=== PATIENT | female | born 1995 | race Caucasian/White ===

== ENCOUNTER 2017-03-16 08:36 | Emergency (ER) | payer BC ==
[~2017-03-16] VITALS: Ht 162.6 cm; Wt 66.0 kg
[2017-03-16 08:37] VITALS: BP 124/80; PULSE 93; RESP 16; TEMP 98.2; O2SAT 99
--- NOTE | 2017-03-16 08:47 | PD ---
HPI Chief Complaint: Flank/Kidney Pain Time Seen by Provider: 08:47 Travel History International Travel<30 days: No Contact w/Intl Traveler<30days: No Traveled to known affect area: No History of Present Illness HPI 21-year-old female came to the emergency room with a with history of mid back pain radiating to her front of the abdomen that story upon laying down. Patient says that she was having some UTI symptoms 2 weeks ago. She did some home remedies like taking AZO and cranberry juice after which she started feeling better and push through it since she is a student and had to continue with her schools. However 1 week ago this pain started and she went to an urgent care. They checked a UA and told her she had pyelonephritis and gave her prescription for ciprofloxacin. Patient has been taking ciprofloxacin for past 3 days. She brought the paperwork in report with her. I looked at the paperwork and the report on the UA myself and did not see anything suspicious for UTI. Patient says her pain continues and was really worse last night. Now she has decided to come to the emergency room to be checked out. No history of fever or chills. She has been nauseous. There was a bedside done before I came in and that was negative. Vital signs otherwise stable. Patient says lately she has started to drink a little more than her usual. She is otherwise a healthy person. [facility] Past Medical History Narrative Medical List of her past medical, surgical, social and family history was reviewed from the nursing note. Social History Tobacco Use: Yes Allergies-Medications (Allergen,Severity, Reaction): Coded Allergies: No Known Allergies (Unverified , 03/16/17) Comments No known drug allergies. Reported Meds & Prescriptions Reported Meds & Active Scripts Active Reglan (Metoclopramide HCl) 5 Mg Tab 5 Mg PO TIDAC PRN Protonix (Pantoprazole Sodium) 40 Mg Tab 40 Mg PO DAILY Reported Cipro (Ciprofloxacin HCl) 500 Mg Tab 500 Mg PO BID Narrative Medication List of her home medications reviewed from the nursing note. Review of Systems Except as stated in HPI: all other systems reviewed are Neg Physical Exam Narrative GENERAL: Awake, alert, moderate distress SKIN: Focused skin assessment warm/dry. HEAD: Atraumatic. Normocephalic. EYES: Pupils equal and round. No scleral icterus. No injection or drainage. ENT: No nasal bleeding or discharge. Mucous membranes pink and moist. NECK: Trachea midline. No JVD. CARDIOVASCULAR: Regular rate and rhythm. No murmur appreciated. RESPIRATORY: No accessory muscle use. Clear to auscultation. Breath sounds equal bilaterally. GASTROINTESTINAL: Abdomen soft, epigastric tenderness on deep palpation, nondistended. Hepatic and splenic margins not palpable. MUSCULOSKELETAL: No obvious deformities. No clubbing. No cyanosis. No edema. NEUROLOGICAL: Awake and alert. No obvious cranial nerve deficits. Motor grossly within normal limits. Normal speech. PSYCHIATRIC: Appropriate mood and affect; insight and judgment normal. Data Data Last Documented VS Vital Signs Date Time Temp Pulse Resp B/P Pulse Ox O2 Delivery O2 Flow Rate FiO2 03/16/17 12:01 78 18 134/71 99 03/16/17 10:31 Room Air 03/16/17 08:37 98.2 Orders Urinalysis - C+S If Indicated (03/16/17 08:47) Ed Urine Pregnancytest Poc (03/16/17 08:47) Complete Blood Count With Diff (03/16/17 09:04) Comprehensive Metabolic Panel (03/16/17 09:04) Lipase (03/16/17 09:04) Ct Abd/Pel W Iv Contrast(Rout) (03/16/17 09:04) Iv Access Insert/Monitor (03/16/17 09:04) Ecg Monitoring (03/16/17 09:04) Oximetry (03/16/17 09:04) Morphine Inj (Morphine Inj) (03/16/17 09:15) Ondansetron Inj (Zofran Inj) (03/16/17 09:15) Pantoprazole Inj (Protonix Inj) (03/16/17 09:15) Sodium Chlor 0.9% 1000 Ml Inj (Ns 1000 M (03/16/17 09:04) Sodium Chloride 0.9% Flush (Ns Flush) (03/16/17 09:15) Oral Contrast - Adult (03/16/17 09:11) Diatrizoate Liq ( Gastroview Liq) (03/16/17 09:23) Urine Culture (03/16/17 08:45) Iohexol 350 Inj (Omnipaque 350 Inj) (03/16/17 10:24) Labs Laboratory Tests Test 03/16/17 03/16/17 08:45 09:10 Urine Collection Type CLEAN CATCH Urine Color YELLOW Urine Turbidity CLEAR Urine pH 5.5 Urine Specific [place] 1.019 Urine Protein NEG mg/dL Urine Glucose (UA) NEG mg/dL Urine Ketones NEG mg/dL Urine Occult Blood NEG Urine Nitrite NEG Urine Bilirubin NEG Urine Leukocyte Esterase NEG Urine WBC 0-2 /hpf Urine Squamous Epithelial 6-8 /hpf Cells Urine Bacteria MOD /hpf Microscopic Urinalysis Comment CULTURE INDICATED Urine Collection Time 08:45 White Blood Count 6.3 TH/MM3 Red Blood Count 4.71 MIL/MM3 Hemoglobin 13.6 GM/DL Hematocrit 40.9 % Mean Corpuscular Volume 86.8 FL Mean Corpuscular Hemoglobin 28.9 PG Mean Corpuscular Hemoglobin 33.3 % Concent Red Cell Distribution Width 12.1 % Platelet Count 314 TH/MM3 Mean Platelet Volume 8.5 FL Neutrophils (%) (Auto) 68.2 % Lymphocytes (%) (Auto) 22.4 % Monocytes (%) (Auto) 4.9 % Eosinophils (%) (Auto) 3.1 % Basophils (%) (Auto) 1.4 % Neutrophils # (Auto) 4.2 TH/MM3 Lymphocytes # (Auto) 1.4 TH/MM3 Monocytes # (Auto) 0.3 TH/MM3 Eosinophils # (Auto) 0.2 TH/MM3 Basophils # (Auto) 0.1 TH/MM3 CBC Comment DIFF FINAL Differential Comment Sodium Level 139 MEQ/L Potassium Level 3.9 MEQ/L Chloride Level 104 MEQ/L Carbon Dioxide Level 27.6 MEQ/L Anion Gap 7 MEQ/L Blood Urea Nitrogen 16 MG/DL Creatinine 0.88 MG/DL Estimat Glomerular Filtration 80 ML/MIN Rate Random Glucose 99 MG/DL Calcium Level 9.3 MG/DL Total Bilirubin 0.5 MG/DL Aspartate Amino Transf 18 U/L (AST/SGOT) Alanine Aminotransferase 21 U/L (ALT/SGPT) Alkaline Phosphatase 71 U/L Total Protein 8.6 GM/DL Albumin 4.2 GM/DL Lipase 152 U/L [facility] Medical Decision Making Medical Screen Exam Complete: Yes Emergency Medical Condition: Yes Medical Record Reviewed: Yes Differential Diagnosis Acute pancreatitis, ureteral colic, acute cholecystitis, abdominal pain NOS Narrative Course 9:53 AM CBC and UA appears to be within normal limits. Awaiting for the chemistry and the CAT scan to be done and resulted. Patient was given IV fluid , pain medication and IV Protonix. 11 AM all the blood test results are back and within acceptable limits. CT scan is done. Awaiting for the report. 11:[address] scan shows a significantly distended stomach. Given the fact that patient just had some cereal in the morning the stomach looks out of proportion nondistended. This makes me wonder if she has a gastric outlet syndrome or gastroparesis. I discussed at length with the patient regarding the possibilities of these 2. She has been given dietary instruction. I'll discharge her home on Protonix and Reglan. She needs to establish a primary care physician for herself and get a referral for GI specialist through her primary care. I discussed this with her as well. She understands. She'll be discharged home. Procedures EKG Prior to Arrival: No Diagnosis Primary Impression: Gastroparesis Additional Impression: Abdominal pain Qualified Code: R10.13 - Epigastric pain Referrals: Primary Care Physician Additional Instructions: Please follow-up with a primary care within the next few days. Return to the ER if the condition worsens or any other new concerns. Take the medication as per the prescription direction. You should not be taking anything in your diet that is high in acid content like porter, lines, oranges, strawberries, tomatoes etc. Since there is an issue with your stomach emptying he recommended to eat small portions of meals but frequently. Stop taking the ciprofloxacin at this point since he does not have UTI. Med/Other Pt SpecificInfo: Prescription(s) given, Med Stopped (Cipro) Scripts Metoclopramide (Reglan)5 Mg Tab5 Mg PO TIDAC PRN (nausea) #20 TAB Ref 0 Prov:Familia Mendiola MD 03/16/17 Pantoprazole (Protonix)40 Mg Tab40 Mg PO DAILY #30 TAB Ref 0 Prov:Familia Mendiola MD 03/16/17 Disposition: DISCHARGE HOME Condition: Stable Familia Mendiola MD Mar 16, 2017 08:47
[2017-03-16] MEDS ORDERED: CIPR-9 PO (08:49)
[2017-03-16 08:59] LABS: BLOOD, URINE NEG (NEG); GLUCOSE,URINE NEG (NEG); KETONE, URINE NEG (NEG); NITRITE,URINE NEG (NEG); PH, URINE 5.5 (5.0-8.5)
[2017-03-16] MEDS ORDERED: SODIUM CHLOR 0.9% 1000 ML INJ 1,000 ML IV SCH (09:04)
[2017-03-16] MEDS ORDERED: ONDANSETRON HCL 4 MG/2 ML VIAL IVP ONE (09:15)
[2017-03-16] MEDS ORDERED: SODIUM CHLORIDE 0.9% FLUSH 10 ML FLUSH IV FLUSH PRN (09:15)
[2017-03-16] MEDS ORDERED: MORPHINE SULFATE 4 MG/ML INJ IV PUSH ONE (09:15)
[2017-03-16] MEDS ORDERED: PANTOPRAZOLE SODIUM 40 MG VIAL IVP ONE (09:15)
[2017-03-16 09:20] VITALS: BP 117/82; PULSE 82; RESP 18; O2SAT 97
[2017-03-16 09:20] LABS: AUTOMATED NEUTROPHIL # 4.2 TH/MM3 (1.8-7.7); BASOPHIL # 0.1 TH/MM3 (0-0.2); BASOPHIL % 1.4 % (0.0-2.0); EOSINOPHIL # 0.2 TH/MM3 (0-0.4); EOSINOPHIL % 3.1 % (0.0-4.0); HEMATOCRIT 40.9 % (35.0-46.0); HEMO FLAGS DIFF FINAL; LYMPH % 22.4 % (9.0-44.0); LYMPHOCYTE # 1.4 TH/MM3 (1.0-4.8); MEAN CELL VOLUME 86.8 FL (80.0-100.0); MEAN CORPUSCULAR HEMOGLOBIN 28.9 PG (27.0-34.0); MEAN CORPUSCULAR HGB CONC 33.3 % (32.0-36.0); MONO % 4.9 % (0.0-8.0); NEUT % 68.2 % (16.0-70.0); PLATELET COUNT 314 TH/MM3 (150-450); RED BLOOD COUNT 4.71 MIL/MM3 (4.00-5.30); RED CELL DISTRIBUTION WIDTH 12.1 % (11.6-17.2); WHITE BLOOD COUNT 6.3 TH/MM3 (4.0-11.0)
[2017-03-16] MEDS ORDERED: DIATRIZOATE MEGLUM/DIATRIZOATE SOD 9 ML CUP ONE (09:23)
[2017-03-16 09:25] LABS: BACTERIA, URINE MOD /hpf; COMMENT (UR) CULTURE INDICATED; CULTURE IF INDICATED CULTURE INDICATED; METHOD OF COLLECTION CLEAN CATCH; URINE COLOR YELLOW (YELLW/STRAW); WBC, URINE 0-2 /hpf (0-5)
[2017-03-16 09:57] LABS: BICARBONATE 27.6 MEQ/L (21.0-32.0)
[2017-03-16 09:59] LABS: ANION GAP 7 MEQ/L (5-15); BLOOD UREA NITROGEN 16 MG/DL (7-18); CHLORIDE 104 MEQ/L (98-107); POTASSIUM 3.9 MEQ/L (3.5-5.1); SODIUM (NA) 139 MEQ/L (136-145)
[2017-03-16 10:00] LABS: ALT (GPT) 21 U/L (10-53); AST (GOT) 18 U/L (15-37)
[2017-03-16 10:03] LABS: ALKALINE PHOSPHATASE 71 U/L (45-117); GLOMERULAR FILTRATION RATE 80 ML/MIN (>89)
[2017-03-16 10:05] LABS: TOTAL BILIRUBIN ADULT 0.5 MG/DL (0.2-1.0)
[2017-03-16] MEDS ORDERED: IOHEXOL 350 MG/ML 10 ML VIAL (for RAD DIAG) IV ONE (10:24)
[2017-03-16 10:31] VITALS: BP 126/86; PULSE 90; RESP 18; O2SAT 98
--- NOTE | 2017-03-16 11:10 | RADRPT ---
EXAM DATE/TIME: 03/16/2017 10:08 [place] COMPARISON: No previous studies available for comparison. INDICATIONS : Bilateral flank pain. Nausea. IV CONTRAST: 85 cc Omnipaque 350 (iohexol) IV ORAL CONTRAST: Prescribed oral contrast ingested. RADIATION DOSE: 6.60 CTDIvol (mGy) MEDICAL HISTORY : None SURGICAL HISTORY : None. ENCOUNTER: Initial ACUITY: 2 weeks PAIN SCALE: 5/10 LOCATION: Bilateral flank TECHNIQUE: Volumetric scanning of the abdomen and pelvis was performed. Using automated exposure control and ad justment of the mA and/or kV according to patient size, radiation dose was kept as low as reasonably achievable to obtain optimal diagnostic quality images. DICOM format image data is available electro nically for review and comparison. FINDINGS: LOWER LUNGS: The visualized lower lungs are clear. LIVER: Homogeneous density without lesion. There is no dilation of the biliary tree. No calcified gallston es. SPLEEN: Normal size without lesion. PANCREAS: Within normal limits. KIDNEYS: There are single punctate 1-2 mm calyceal calcifications in the inferior pole of the right kidney and mid left kidney. Kidneys otherwise normal in size and demonstrate symmetrical enhancement without ev idence for hydronephrosis or focal mass. ADRENAL GLANDS: Within normal limits. VASCULAR: There is no aortic aneurysm. BOWEL/MESENTERY: Stomach is significantly distended with oral contrast. The duodenum is normal in caliber. No evidence for significant gastric wall thickening or focal mass. Contrast is noted throughout the small bowel. The Bowel otherwise appears normal without evidence for obstruction. The appendix is not directly vi sualized. However, there is no pericecal inflammatory change or adenopathy. ABDOMINAL WALL: Within normal limits. RETROPERITONEUM: There is no lymphadenopathy. BLADDER: No wall thickening or mass. REPRODUCTIVE: Within normal limits. INGUINAL: There is no lymphadenopathy or hernia. MUSCULOSKELETAL: Within normal limits for patient age. CONCLUSION: 1. Punctate 1-2 mm bilateral renal calyceal calculi without evidence for hydronephrosis. 2. Gastric distention without significant focal abnormality. Contrast does extend into the small carmen l. Although nonspecific, differential considerations include gastroparesis versus partial gastric out let obstruction in this patient with history of nausea. Clinical correlation is recommended. James Gates MD on March 16, 2017 at 10:57 Board Certified Radiologist. This report was verified electronically.
[2017-03-16] MEDS ORDERED: PROT40TA PO (11:24)
[2017-03-16] MEDS ORDERED: REGL5TAB PO (11:24)
[2017-03-16 12:01] VITALS: BP 134/71
== END 2017-03-16 12:03 | disposition home or self-care (01) ==
LOC: PHED 08:36
DX: K31.84 Gastroparesis (principal); Z72.0 Tobacco use
CPT/HCPCS: 74177; 80053; 81001; 83690; 84703; 85025; 87086; 96361; 96374; 96375; 99285; C9113; J2270; J2405; J7030; Q9963; Q9967